=== PATIENT | female | born 1995 | race Caucasian/White ===

== ENCOUNTER 2020-06-13 16:50 | Emergency (ER) | payer OTHER ==
--- NOTE | 2020-06-13 17:50 | ER Document Report ---
ED Medical Screen (RME) - General Chief Complaint: Abnormal Lab Results Stated Complaint: ABNORMAL LABS Time Seen by Provider: 06/13/20 17:45 Mode of Arrival: Ambulatory Information source: Patient Notes: HPI; 24-year-old female presents to the emergency room with bloody vaginal discharge for the past 6 days states she is on a 3-month continuous control and has not missed any of her pills. States she did 2 home test this morning that were faintly positive. Any previous pregnancies. Denies any nausea, vomiting, no abdominal pain. PE: Alert and oriented x3. Lungs: Clear to auscultation without rales, rhonchi, wheezes. Heart: Regular rate rhythm without murmurs, rubs, gallops I have greeted and performed a rapid initial assessment of this patient. A comprehensive ED assessment and evaluation of the patient, analysis of test results and completion of the medical decision making process will be conducted by additional ED providers. I have specifically instructed the patient or family members with the patient to immediately return to any nursing staff should anything change in the patient's condition or with their chief complaint. TRAVEL OUTSIDE OF THE [place] IN LAST 30 DAYS: No - Related Data Allergies/Adverse Reactions: No Known Allergies Allergy (Verified 06/13/20 17:45) Physical Exam - Vital signs Vitals: Temp Pulse Resp BP Pulse Ox 98.5 F 77 20 144/97 H 96 06/13/20 17:31 06/13/20 17:31 06/13/20 17:06/13/20 17:31 06/13/20 17:31 Course - Vital Signs Vital signs: Temp Pulse Resp BP Pulse Ox 98.5 F 77 20 144/97 H 96 06/13/20 17:31 06/13/20 17:31 06/13/20 17:31 06/13/20 17:31 06/13/20 17:31
[2020-06-13 18:16] LABS: ABSOLUTE LYMPHOCYTES (AUTO) 1.8 10^3/uL (0.5-4.7); ABSOLUTE MONOCYTES (AUTO) 0.5 10^3/uL (0.1-1.4); ABSOLUTE NEUT (AUTO) 3.3 10^3/uL (1.7-8.2); BASOPHILS % (AUTO) 0.6 % (0-2); EOSINOPHILS % (AUTO) 0.9 % (0-6); HEMATOCRIT 41.1 % (36.0-47.0); HEMOGLOBIN 13.7 g/dL (12.0-15.5); LYMPHOCYTES % (AUTO) 31.1 % (13-45); MEAN CORPUSCULAR HEMOGLOBIN 27.8 pg (27.0-33.4); MEAN CORPUSCULAR HGB CONC 33.3 g/dL (32.0-36.0); MEAN CORPUSCULAR VOLUME 84 fl (80-97); PLATELET COUNT 290 10^3/uL (150-450); RED BLOOD COUNT 4.91 10^6/uL (3.72-5.28); RED CELL DISTRIBUTION WIDTH 13.2 % (11.5-14.0); SEGMENTED NEUTROPHILS % (AUTO) 58.4 % (42-78); TOTAL CELLS COUNTED % (AUTO) 100 %; WHITE BLOOD COUNT 5.7 10^3/uL (4.0-10.5)
[2020-06-13 18:23] LABS: APPEARANCE,URINE CLEAR; BILIRUBIN,URINE NEGATIVE (NEGATIVE); COLOR,URINE STRAW; GLUCOSE, URINE NEGATIVE (NEGATIVE); KETONES,URINE NEGATIVE (NEGATIVE); LEUKOCYTE ESTERASE,URINE NEGATIVE (NEGATIVE); NITRITE,URINE NEGATIVE (NEGATIVE); PROTEIN,URINE NEGATIVE (NEGATIVE); URINE SPECIFIC GRAVITY 1.008; UROBILINOGEN,URINE NEGATIVE mg/dL (<2.0)
[2020-06-13 18:38] LABS: ALBUMIN 4.1 g/dL (3.5-5.0); ALKALINE PHOSPHATASE 63 U/L (38-126); ANION GAP 8 (5-19); ASPARTATE AMINO TRANSFERASE 34 U/L (14-36); BILIRUBIN,DIRECT 0.2 mg/dL (0.0-0.4); BILIRUBIN,TOTAL 0.3 mg/dL (0.2-1.3); BLOOD UREA NITROGEN 12 mg/dL (7-20); CALCIUM 9.5 mg/dL (8.4-10.2); CARBON DIOXIDE 24 mmol/L (22-30); CHLORIDE 105 mmol/L (98-107); GLUCOSE 92 mg/dL (75-110); POTASSIUM 4.2 mmol/L (3.6-5.0)
--- NOTE | 2020-06-13 20:27 | ER Document Report ---
ED General - General Chief Complaint: possible pregancy Stated Complaint: ABNORMAL LABS Time Seen by Provider: 06/13/20 17:45 Primary Care Provider: JOSE RAUL OWEN PA-C [Primary Care Provider] - Follow up as needed Mode of Arrival: Ambulatory TRAVEL OUTSIDE OF THE [place] IN LAST 30 DAYS: No - HPI Notes: Patient is a 24-year-old female that presents to the emergency department for evaluation. She states she has had pinkish-brown discharge, but she is not due for her menstruation for a few weeks. She is on a 3-month cycle control pill, and states this is never happened before. She took a test and it was "faintly positive. She contacted her primary care provider who recommended that she come to the emergency department. The patient states she has had some mild cramping pain, but it feels like a normal menstruation. She has had no fevers or chills. No nausea or vomiting. Normal bowel movements. No urinary symptoms. She has no history of sexually transmitted infections. She denies any ulcers or sores in the area. She is in a monogamous relationship. - Related Data Allergies/Adverse Reactions: No Known Allergies Allergy (Verified 06/13/20 17:45) Home Medications: List reviewed Past Medical History - General Information source: Patient - Social History Smoking Status: Never Smoker Family History: Reviewed & Not Pertinent Psychiatric Medical History: Reports: Hx Anxiety Review of Systems - Review of Systems Constitutional: No symptoms reported EENT: No symptoms reported Cardiovascular: No symptoms reported Respiratory: No symptoms reported Gastrointestinal: No symptoms reported Genitourinary: No symptoms reported Female Genitourinary: See HPI Musculoskeletal: No symptoms reported Skin: No symptoms reported Neurological/Psychological: No symptoms reported Physical Exam - Vital signs Vitals: Temp Pulse Resp BP Pulse Ox 98.5 F 77 20 144/97 H 96 06/13/20 17:31 06/13/20 17:31 06/13/20 17:31 06/13/20 17:31 06/13/20 17:31 - Notes Notes: Vital signs reviewed, please refer to chart. Head is normocephalic, atraumatic. Pupils equal round, reactive to light. Neck is supple without meningismus. Heart is regular rate and rhythm. Lungs are clear to auscultation bilaterally. Abdomen is soft, nontender, normoactive bowel sounds throughout. Extremities w ithout cyanosis, clubbing. Posterior calves are nontender. Peripheral pulses are equal. Skin is warm and dry. Patient is awake, alert, neurological exam is nonfocal. Course - Re-evaluation Re-evalutation: 06/13/20 20:32 Patient presents emergency department for evaluation. She states she had 2 faintly positive test at home via urine. Her blood test here was found to be entirely negative. She does not have any risk factors for STI. I canceled her ultrasound, she states that her pain feels similar to menstruation. I explained her that despite being on control pills that have a 3-month cycle, she can have breakthrough bleeding. Even taking her pill at a different time of day can cause this to happen. I explained to her that it is not impossible for her to be extremely early in and does not be detected, but I find it highly unlikely. She voiced understanding. At this point patient is amenable to discharge without the ultrasound. She is to follow-up closely with her primary care provider. She is to return to the emergency department with worsening or new concerning symptoms of any sort. - Vital Signs Vital signs: Temp Pulse Resp BP Pulse Ox 98.5 F 77 20 144/97 H 96 06/13/20 17:31 06/13/20 17:31 06/13/20 17:31 06/13/20 17:31 06/13/20 17:31 - Laboratory Results Result Diagrams: 06/13/20 17:56 06/13/20 17:56 Laboratory Results Interpreted: 06/13/20 06/13/20 17:25 17:56 Sodium 136.6 L ALT 52 H Urine Blood MODERATE H Critical Laboratory Results Reviewed: No Critical Results - Radiology Results Critical Radiology Results Reviewed: No Critical Results Discharge - Discharge Clinical Impression: Abnormal vaginal bleeding Condition: Stable Disposition: HOME, SELF-CARE Instructions: Vaginal Bleeding ([facility]) Additional Instructions: Your blood beta-hCG was negative here today. Please follow-up closely with your [employer] [facility]. Return to the emergency department with worsening or new concerning symptoms of any sort. Referrals: JOSE RAUL OWEN PA-C [Primary Care Provider] - Follow up as needed
[2020-06-13 20:29] VITALS: BP 151/90
== END 2020-06-13 20:31 | disposition home or self-care (01) ==
LOC: ER 16:50
DX: N89.8 Other specified noninflammatory disorders of vagina (principal); Z79.3 Long term (current) use of hormonal contraceptives; Z32.02 Encounter for pregnancy test, result negative
CPT/HCPCS: 36415; 80053; 81001; 84703; 85025; 99283